=== PATIENT | male | born 1975 ===

== ENCOUNTER 2022-02-20 07:22 | Emergency (ER) | payer SELFPAY ==
--- NOTE | 2022-02-20 08:00 | NUR ---
CALLED TO TRIAGE,NO ANSWER
--- NOTE | 2022-02-20 08:26 | NUR ---
CALLED TO TRIAGE,NO ANSWER
== END 2022-02-20 08:32 | disposition left against medical advice (07) ==
LOC: ER 07:37
DX: Z53.21 Procedure and treatment not carried out due to patient leaving prior to being seen by health care provider (principal)